=== PATIENT | female | born 1955 | race Caucasian/White ===

== ENCOUNTER 2020-12-13 03:21 | Day surgery (SDC) | payer MEDICARE, SELFPAY ==
[2020-12-08 13:28] VITALS: BMI 31.6
[2020-12-13 10:10] VITALS: BP 110/75; PULSE 82; RESP 18; TEMP 36.6; O2SAT 97; BMI 30.7
[2020-12-13] MEDS: LACTATED RINGERS 1,000 ML 150 ML IV CONT (10:20)
--- NOTE | 2020-12-13 10:30 | WPDANESEPPF ---
Anes - Initial Pre Proc Eval Procedure: Operation Date: 12/13/20 11:15 Proposed Procedures p Esophagogastroduodenoscopy - Armand Crum MD Date/Time: 12/13/20 10:30 Surgeon: Armand Crum MD Pre Op Diagnosis: gastritis Patient Data Age: 65 Gender: F Height: 1.55 m Weight: 73.6 kg Last Vital Signs Temp 36.6 C 12/13/20 10:10 Pulse 82 12/13/20 10:10 Resp 18 12/13/20 10:10 BP 110/75 12/13/20 10:10 Pulse Ox 97 12/13/20 10:10 Allergies Allergy/AdvReac Type Severity Reaction Status Date / Time codeine Allergy Unknown BLURRED Verified 12/13/20 10:08 VISION, NAUSEA AND VOMTING, HIVES Home Medications Medication Instructions Recorded Confirmed Type cholecalciferol (vitamin D3) 125 mcg PO DAILY 12/08/20 12/08/20 History [Vitamin D3] esomeprazole magnesium 40 mg PO DAILY 12/08/20 12/08/20 History estradiol [Vivelle-Dot] 1 patch TRANSDERMAL 2XW 12/08/20 12/08/20 History frovatriptan 2.5 mg PO DAILY PRN 12/08/20 12/08/20 History levothyroxine [Synthroid] 100 mcg PO DAILY 12/08/20 12/08/20 History mecobalamin (vitamin B12) 1,000 mcg PO DAILY 12/08/20 12/08/20 History Patient hx anesthesia problems: none Family hx anesthesia problems: none PMFSH Past Medical History Medical History (Updated 12/13/20 @ 10:34 by Igor Webster MD) Hx of migraines Hyperlipidemia Obesity Positional vertigo Surgical History Surgical History (Updated 12/13/20 @ 10:34 by Igor Webster MD) H/O colonoscopy History of esophagogastroduodenoscopy (EGD) Social History Social History Smoking status: Never smoker Living arrangements: with family Spiritual care concerns: No Anes - Eval Final PreProcedure Day of Procedure 12/13/20 10:30 Patient weight: obese Heart: regular rate and rhythm Lungs: clear to auscultation Airway: Mallampati scale class II Neurological: alert and oriented Last oral intake: >/= 8 hours ASA classification: III Emergent: no Anesthetic plan: proceed Anesthesia type and monitoring: general and standard monitoring Informed Consent: The patient's anesthetic plan and its attendant risks and benefits were discussed with the patient/family/POA. Questions were solicited and answers provided to the satisfaction of the patient/family/POA.
--- NOTE | 2020-12-13 10:57 | PM.HPGS ---
History of Present Illness History of Present Illness Consent: Risks, benefits, and alternatives have been discussed and questions answered. Patient agrees to proceed with procedure. Chief complaint: gastritis Narrative: Britany Medina is a 65 year old female with ruq pain, had egd and lap anurag 2 years ago. Still with pain and CT scan showed thickening antrum (reviewed records), she is on nexium otc Review of Systems Constitutional: Constitutional: Denies headache(s) and Denies weakness Eyes: Eyes: Denies blurry vision ENT: Reports Normal hearing present, Denies headache(s) and Denies neck pain Cardiovascular: Cardiovascular: Denies chest pain and Denies dyspnea Respiratory: Respiratory: Denies dyspnea Gastrointestinal: Gastrointestinal: Reports no additional gastrointestinal complaints Genitourinary: Genitourinary: Denies dysuria Musculoskeletal: Musculoskeletal: Denies neck pain Integumentary/Breasts: Skin/Breast: Denies dry skin Neurologic: Reports Normal hearing present, Denies headache(s) and Denies weakness Psychiatric: Psychiatric: Denies anxiety Endocrine: Endocrine: Denies change in body appearance Hematologic/Lymphatic: Hematologic/Lymphatic: Denies easy bleeding Allergic/Immunologic: Allergic/Immunologic: Denies urticaria PMFSH Past Medical History Medical History (Updated 12/13/20 @ 10:58 by Armand Crum MD) Abnormal CT scan, stomach Hx of migraines Hyperlipidemia Obesity Positional vertigo RUQ pain Surgical History Surgical History (Updated 12/13/20 @ 10:34 by Igor Webster MD) H/O colonoscopy History of esophagogastroduodenoscopy (EGD) Social History Social History Smoking status: Never smoker Living arrangements: with family Spiritual care concerns: No Meds Home Medications and Allergies Home Medications Medication Instructions Recorded Confirmed Type cholecalciferol (vitamin D3) 125 mcg PO DAILY 12/08/20 12/08/20 History [Vitamin D3] esomeprazole magnesium 40 mg PO DAILY 12/08/20 12/08/20 History estradiol [Vivelle-Dot] 1 patch TRANSDERMAL 2XW 12/08/20 12/08/20 History frovatriptan 2.5 mg PO DAILY PRN 12/08/20 12/08/20 History levothyroxine [Synthroid] 100 mcg PO DAILY 12/08/20 12/08/20 History mecobalamin (vitamin B12) 1,000 mcg PO DAILY 12/08/20 12/08/20 History Allergies Allergy/AdvReac Type Severity Reaction Status Date / Time codeine Allergy Unknown BLURRED Verified 12/13/20 10:08 VISION, NAUSEA AND VOMTING, HIVES Vital Signs Vital Signs - 24 hr 12/13/20 10:10 Temperature 97.9 F Pulse Rate 82 Respiratory Rate 18 Blood Pressure 110/75 Pulse Oximetry 97 Exam Const: General: comfortable and no acute distress HENMT: General nose exam: Normal nares present Eyes: General: appearance normal, both eyes and all related structures Neck: Neck: no JVD Resp: Auscultation: clear to auscultation bilaterally Cardio: Rate: regular rate Rhythm: regular rhythm GI: Inspection: non-distended GI Palp: Yes Soft to palpation Skin: General skin exam: normal color Neuro: General: gait normal Speech: normal speech Extrem: General: normal to inspection Psych: Mental Status: mental status grossly normal Assessment and Plan Assessment and plan (1) RUQ pain: Code(s): R10.11 - Right upper quadrant pain Status: Acute Assessment and Plan: egd with bx (2) Abnormal CT scan, stomach: Code(s): R93.3 - Abnormal findings on diagnostic imaging of other parts of digestive tract Status: Acute
[2020-12-13 11:17] VITALS: BP 109/65; PULSE 82; RESP 18; O2SAT 100
[2020-12-13 11:27] VITALS: BP 111/74; PULSE 78; RESP 18; O2SAT 100
[2020-12-13 11:37] VITALS: BP 110/72; PULSE 79; RESP 19; O2SAT 100
== END 2020-12-13 11:49 | disposition home or self-care (01) ==
PROVIDERS: PCP Internal Medicine; Visit Provider Internal Medicine Gastroenterology
PROC: 0DJ08ZZ Inspection of Upper Intestinal Tract, Via Natural or Artificial Opening Endoscopic (ICD-10-PCS; CPT 43235; principal; 2020-12-13 11:15)
DX: R10.11 Right upper quadrant pain (principal); R93.3 Abnormal findings on diagnostic imaging of other parts of digestive tract; E78.5 Hyperlipidemia, unspecified; E66.9 Obesity, unspecified; H81.10 Benign paroxysmal vertigo, unspecified ear
CPT/HCPCS: 43239; 88305; J2001; J2704; J7120

== ENCOUNTER 2024-09-12 00:45 | Day surgery (SDC) | payer MEDICARE, SELFPAY ==
[2024-09-03 14:08] VITALS: BMI 34.7
--- OUTSIDE RECORDS SUMMARY | 2024-09-12 00:47 | XMS_ITS ---
"shoul d not be used as the sole basis for treat ment or other patie nt manag ement decis ions. Test resul ts shoul d be corre lated with the clini lashaun histo ry, epide miedd gical data, and other data avail able to the clini prince evalu ating the patie nt. Yoli luciano the Fact Sheet s for healt h care provi ders and patie nts at the [facility] scotty: https ://ww w.fda .gov/ media /1363 12/do wnloa d https ://ww w.fda .gov/ media /1363 13/do wnloa d Metho dolog y: Real- Time RT-PC R Not Available [facility] (Lab) [address] [place], [address], 01/01/2024 19:09:32 01/01/20 24 01/01/2024 COVID -19, INFLU KARISHMA A+B, PCR influenza A RNA, RT-PCR NEGATI VE Not Available [facility] (Lab) [address] [place], [address], 01/01/2024 19:09:32 01/01/20 24 01/01/2024 COVID -19, INFLU KARISHMA A+B, PCR influenza B RNA, RT-PCR NEGATI VE Not Available [facility] (Lab) [address] [place], [address], 01/01/2024 19:09:32 01/01/20 24 01/01/2024 RAPID STREP A DNA strep A DNA, JUAREZ NEGATI VE negati ve Not Available [facility] (Lab) [address] [place], [address], 01/01/2024 19:12:18 01/31/20 24 01/31/2024 CBC/C OMPLE TE BLD COUNT W/DIF F white blood cells 6.8 x10'3 /uL 4.2-10 .8 Not Available [facility] (Lab) [address] [place], [address], 01/31/2024 14:46:31 01/31/2001/31/2024 CBC/C OMPLE TE BLD COUNT W/DIF F red blood cells 4.57 x10'6 /uL 3.80-5 .20 Not Available [facility] (Lab) [address] [place], [address], 01/31/2024 14:46:31 01/31/2001/31/2024 CBC/C OMPLE TE BLD COUNT W/DIF F hemoglobin 13.6 g/dL 12.0-1 5.6 Not Available [facility] (Lab) [address] [place], [address], 01/31/2024 14:46:31 01/31/2001/31/2024 CBC/C OMPLE TE BLD COUNT W/DIF F hematocrit 40.2 % 35.7-4 5.7 Not Available [facility] (Lab) [address] [place], [address], 01/31/2024 14:46:31 01/31/2001/31/2024 CBC/C OMPLE TE BLD COUNT W/DIF F mean red cell volume 88.0 fL 82.0-9 9.0 Not Available [facility] (Lab) [address] [place], [address], 01/31/2024 14:46:31 01/31/2001/31/2024 CBC/C OMPLE TE BLD COUNT W/DIF F mean red cell hemoglobin 29.8 pg 27.0-3 3.0 Not Available [facility] (Lab) [address] [place], [address], 01/31/2024 14:46:31 01/31/20 24 01/31/2024 CBC/C OMPLE TE BLD COUNT W/DIF F mean RBC HGB concentratio n 33.8 g/dL 31.0-3 6.0 Not Available [facility] (Lab) [address] [place], [address], 01/31/2024 14:46:31 01/31/2001/31/2024 CBC/C OMPLE TE BLD COUNT W/DIF F red cell distribution width 12.7 % 11.8-1 5.5 Not Available [facility] (Lab) [address] [place], [address], 01/31/2024 14:46:31 01/31/2001/31/2024 CBC/C OMPLE TE BLD COUNT W/DIF F platelets 233 x10'3 /uL 150-40 0 Not Available [facility] (Lab) [address] [place], [address], 01/31/2024 14:46:31 01/31/2001/31/2024 CBC/C OMPLE TE BLD COUNT W/DIF F mean platelet volume 9.4 fL 9.0-12 .4 Not Available [facility] (Lab) [address] [place], [address], 01/31/2024 14:46:31 01/31/20 24 01/31/2024 CBC/C OMPLE TE BLD COUNT W/DIF F neutrophils 61.6 % 39.0-7 2.0 Not Available [facility] (Lab) [address] [place], [address], 01/31/2024 14:46:31 01/31/2001/31/2024 CBC/C OMPLE TE BLD COUNT W/DIF F lymphocytes 26.1 % 16.0-4 7.0 Not Available [facility] (Lab) [address] [place], [address], 01/31/2024 14:46:31 01/31/20 24 01/31/2024 CBC/C OMPLE TE BLD COUNT W/DIF F monocytes 10.2 % 5.0-12 .0 Not Available [facility] (Lab) [address] [place], [address], 01/31/2024 14:46:31 01/31/2001/31/2024 CBC/C OMPLE TE BLD COUNT W/DIF F eosinophils 1.2 % 1.0-7. 0 Not Available [facility] (Lab) [address] [place], [address], 01/31/2024 14:46:31 01/31/2001/31/2024 CBC/C OMPLE TE BLD COUNT W/DIF F basophils 0.6 % 0.0-2. 0 Not Available [facility] (Lab) [address] [facility] [place], [address], 01/31/2024 14:46:31 01/31/2001/31/2024 CBC/C OMPLE TE BLD COUNT W/DIF F immature granulocytes 0.3 % 0.00-0 .50 Not Available [facility] (Lab) [address] [place], [address], 01/31/2024 14:46:31 01/31/2001/31/2024 CBC/C OMPLE TE BLD COUNT W/DIF F neutrophils, absolute count 4.17 x10'3 /uL 1.5-8. 0 Not Available [facility] (Lab) [address] [place], [address], 01/31/2024 14:46:31 01/31/2001/31/2024 CBC/C OMPLE TE BLD COUNT W/DIF F lymphocytes, absolute count 1.77 x10'3 /uL 1.07-3 .43 Not Available [facility] (Lab) [address] [place], [address], 01/31/2024 14:46:31 01/31/20 24 01/31/2024 CBC/C OMPLE TE BLD COUNT W/DIF F monocytes, absolute count 0.69 x10'3 /uL 0.29-0 .99 Not Available [facility] (Lab) [address] [place], [address], 01/31/2024 14:46:31 01/31/2001/31/2024 CBC/C OMPLE TE BLD COUNT W/DIF F eosinophils, absolute count 0.08 x10'3 /uL 0.02-0 .53 Not Available [facility] (Lab) [address] [place], [address], 01/31/2024 14:46:31 01/31/2001/31/2024 CBC/C OMPLE TE BLD COUNT W/DIF F basophils, absolute count 0.04 x10'3 /uL 0.01-0 .08 Not Available [facility] (Lab) [address] [place], [address], 01/31/2024 14:46:31 01/31/2001/31/2024 CBC/C OMPLE TE BLD COUNT W/DIF F immature granulocytes ,absolute 0.02 x10'3 /uL 0.00-0 .05 Not Available [facility] (Lab) [address] [place], [address], 01/31/2024 14:46:31 01/31/2001/31/2024 CBC/C OMPLE TE BLD COUNT W/DIF F nucleated red blood cells 0.0 % -0 Not Available [facility] (Lab) [address] [place], [address], 01/31/2024 14:46:31 01/31/2001/31/2024 CBC/C OMPLE TE BLD COUNT W/DIF F NRBC# 0.00 x10'3 /uL Not Available [facility] (Lab) [address] [place], [address], 01/31/2024 14:46:31 01/31/2001/31/2024 LIPID PANEL cholesterol 177 mg/dL 140-19 9 NIH EDDIE NSUS RECOM MENDA TION FOR YAZMIN STERO L: ADULT CHILD LOW RISK: <200 <170 BORDE RLINE : <200- 239 ----- HIGH RISK: >240 >200 Not Available [facility] (Lab) [address] [place], [address], 01/31/2024 14:59:03 01/31/2001/31/2024 LIPID PANEL triglyceride s 162 mg/dL 0-150 high NIH EDDIE NSUS REPOR T RECOM MENDA TION FOR TRIGL YCERI MARITO: ADULT CHILD LOW RISK: <150 ----- BODER LINE: 150-1 99 ----- HIGH RISK: >200 ----- Not Available [facility] (Lab) [address] [place], [address], 01/31/2024 14:59:03 01/31/2001/31/2024 LIPID PANEL HDL cholesterol 53 mg/dL 40- Not Available [facility] (Lab) [address] [place], [address], 01/31/2024 14:59:03 01/31/20 24 01/31/2024 LIPID PANEL LDL cholesterol, calculated 92 mg/dL 0-130 NIH EDDIE NSUS REPOR T RECOM MENDA TIONS FOR LDL: ADULT CHILD LOW RISK <130 <110 (OPTI MAL LDL) <100 ----- BORDE RLINE : 130-1 59 ----- HIGH RISK: >160 >130 A TRIGL YCERI DE RESUL T >400 INVAL IDATE S THE CALCU LATIO N FOR LDL FRACT IONAT ION - THE LDL RESUL T WILL NOT BE REPOR ESPERANZA. Not Available [facility] (Lab) [address] [place], [address], 01/31/2024 14:59:03 01/31/20 24 01/31/2024 COMPR EHENS PHOEBE METAB OLIC PANEL sodium 135 mmol/ L 137-14 5 low Not Available [facility] (Lab) [address] [place], [address], 01/31/2024 14:59:18 01/31/2001/31/2024 COMPR EHENS PHOEBE METAB OLIC PANEL potassium 3.9 mmol/ L 3.5-5. 1 Not Available [facility] (Lab) [address] [place], [address], 01/31/2024 14:59:18 01/31/2001/31/2024 COMPR EHENS PHOEBE METAB OLIC PANEL chloride 104 mmol/ L 98-107 Not Available [facility] (Lab) [address] [place], [address], 01/31/2024 14:59:18 01/31/2001/31/2024 COMPR EHENS PHOEBE METAB OLIC PANEL carbon dioxide 26 mmol/ L 22-30 Not Available [facility] (Lab) [address] [place], [address], 01/31/2024 14:59:18 01/31/2001/31/2024 COMPR EHENS PHOEBE METAB OLIC PANEL anion gap 8.9 mmol/ L 14-22 low Not Available [facility] (Lab) [address] [place], [address], 01/31/2024 14:59:18 01/31/2001/31/2024 COMPR EHENS PHOEBE METAB OLIC PANEL glucose 105 mg/dL 70-99 high Not Available [facility] (Lab) [address] [place], [address], 01/31/2024 14:59:18 01/31/2001/31/2024 COMPR EHENS PHOEBE METAB OLIC PANEL BUN 15 mg/dL 8-19 Not Available [facility] (Lab) [address] [place], [address], 01/31/2024 14:59:18 01/31/2001/31/2024 COMPR EHENS PHOEBE METAB OLIC PANEL creatinine 0.72 mg/dL 0.66-1 .25 Not Available [facility] (Lab) [address] [place], [address], 01/31/2024 14:59:18 01/31/20 24 01/31/2024 COMPR EHENS PHOEBE METAB OLIC PANEL GFR >60 Refer ence Range : [place] ge GFR Healt hy Adult : >60 mL/mi n/1.7 3 m2 Chron ic Kidne y Disea se: 15-60 mL/mi n/1.7 3 m2 Kidne y Failu re: <15/m L/min /1.73 m2 www.n iddk. nih.g ov The MDRD study equat ion has not been valid ated in child arin <18 years of age; pregn ant women ; the elder ly >85 years of age; or in some racia l or ethni c subgr oups, such as [facility] nics. Outsi de the valid ated nathan eters , estim ated GFR is less accur ate, requi ring clini lashaun judgm ent on a case- by-ca se basis . Clini lashaun inter preta tion for other races and ages must be made by the clini prince. The MDRD study equat ion has not been valid ated for the evalu ation of serum creat inine relat ed to nutri je l statu s or medic ation usage . For perso ns <18 years of age, a pedia tric GFR calcu lator is avail able on the [facility] websi te: https ://stephy w.kid ruba.o rg/pr ofess ional s/kdo qi/gf r_cal culat or Not Available [facility] (Lab) [address] [place], [address], 01/31/2024 14:59:18 01/31/20 24 01/31/2024 COMPR EHENS PHOEBE METAB OLIC PANEL alkaline phosphatase 68 U/L 38-126 Not Available [facility] (Lab) [address] [place], [address], 01/31/2024 14:59:18 01/31/20 24 01/31/2024 COMPR EHENS PHOEBE METAB OLIC PANEL alanine aminotransfe rase 33 U/L 0-35 Not Available [facility] (Lab) [address] [place], [address], 01/31/2024 14:59:18 01/31/20 24 01/31/2024 COMPR EHENS PHOEBE METAB OLIC PANEL aspartate aminotransfe rase 26 U/L 15-37 Not Available [facility] (Lab) [address] [place], [address], 01/31/2024 14:59:18 01/31/2001/31/2024 COMPR EHENS PHOEBE METAB OLIC PANEL bilirubin, total 0.50 mg/dL 0.20-1 .30 Not Available [facility] (Lab) [address] [place], [address], 01/31/2024 14:59:18 01/31/2001/31/2024 COMPR EHENS PHOEBE METAB OLIC PANEL calcium 9.8 mg/dL 8.4-10 .2 Not Available [facility] (Lab) [address] [place], [address], 01/31/2024 14:59:18 01/31/2001/31/2024 COMPR EHENS PHOEBE METAB OLIC PANEL total protein 6.0 g/dL 6.3-8. 2 low Not Available [facility] (Lab) [address] [place], [address], 01/31/2024 14:59:18 01/31/2001/31/2024 COMPR EHENS PHEOBE METAB OLIC PANEL albumin 4.0 g/dL 3.0-4. 4 Not Available [facility] (Lab) [address] [place], [address], 01/31/2024 14:59:18 01/31/20 24 01/31/2024 COMPR EHENS PHOEBE METAB OLIC PANEL globulin 2.0 g/dL 2.6-4. 2 low Not Available [facility] (Lab) [address] [place], [address], 01/31/2024 14:59:18 01/31/20 24 01/31/2024 COMPR EHENS PHOEBE METAB OLIC PANEL A/G ratio 2.0 ratio 1.0-2. 0 Not Available [facility] (Lab) [address] [place], [address], 01/31/2024 14:59:18 01/31/2001/31/2024 T4 FREE free T4 0.82 NG/dL 0.78-2 .19 Not Available [facility] (Lab) [address] [place], [address], 01/31/2024 15:04:18 01/31/20 24 01/31/2024 MICRO ALBUM IN RANDO M URINE microalbumin , urine 6.8 mg/L 0.0-16 .6 Not Available [facility] (Lab) [address] [place], [address], 01/31/2024 15:06:13 01/31/20 24 01/31/2024 VITAM IN D 25-HY DROXY vd25oh 59.5 NG/mL 30-100 Vitam in D Statu s: Defic ient: <20 ng/mL Insuf ficie nt: 20-29 ng/mL Suffi cient : 30-10 0 ng/mL Not Available [facility] (Lab) [address] [place], [address], 01/31/2024 15:07:10 01/31/20 24 01/31/2024 TSH thyroid-stim ulating hormone 2.560 uIU/m L 0.465- 4.680 Not Available [facility] (Lab) [address] [place], [address], 01/31/2024 15:08:06 01/31/20 24 01/31/2024 VITAM IN B12 (SKYLER RANJIT ) vb12 722 pg/mL 239-93 1 Not Available [facility] (Lab) [address] [place], [address], 01/31/2024 15:45:44 01/31/20 24 01/31/2024 FOLAT E, SERUM /PLAS MA folate 2.91 NG/mL 2.76-2 0.0 Not Available [facility] (Lab) [address] [place], [address], 01/31/2024 15:45:46 01/31/20 24 01/31/2024 HEMOG LOBIN A1C HA1C 5.5 % 4.0-6. 0 Diabe scotty Scree dayna Crite sundar: <5.7% Consi stent with absen ce of diabe scotty 5.7-6 .4% Consi stent with incre ased risk for diabe scotty (pred iabet es) >OR=6 .5% Consi stent with diabe scotty REFER ENCE: Diabe scotty Care 2016, 39(Cueva ppl.1 ):s13 -s22 Not Available [facility] (Lab) [address] [place], [address], 01/31/2024 16:57:46 06/15/19 24 06/14/2023 CT, chest , w/o contr ast [facility] [address] [place], [place] [address] [phone] Patien t Name: MARYJANEJACOBOBryan SRAVAN MARLEY Access ion #: [id number] Sex: F : 1954 8 Dictat ed By: Keith Agustin ms Attend ing Physic diaz: WILLIAM CRUZ Orderi Physic diaz: WILLIAM CRUZ Exam Date: 2023 14:56 PM Exam Name: CT CHEST WO Admitt ing Diagno sis(es ): Proced ure: CT CHEST WO Reason for study/ Clinic al Histor y: Shortn ess of breath on exerti on. Compar warner Study: None availa ble at time of dictat ion. Exam Date: 2:56 PM TECHNI QUE: Multid etecto r CT of the chest was perfor med from the lung apices to the upper abdome n withou t the use of intrav enous contra ct. Axial, amador l and sagitt al multip lanar reform ats were perfor med. RADIAT ION DOSE: CTDI volume is 10.1 mGy. Dose-l ength produc t is 375.6 mGy*cm The dose indica tors for CT are the volume Comput ed Tomogr aphy (CT) Dose Index (CTDIv ol) and the Dose Length Produc t (DLP), and are measur ed in units of mGy and mGy-cm , respec tively . These indica tors are not patien t dose, but values genera esperanza from the CT scanne r acquis ition factor s. The report includ es radiat ion exposu re data for exposu res receiv ed during this examin ation. FINDIN GS: Lower neck: Normal thyroi d. Lungs: There is a 3 mm round glass nodule in the latera l right upper lobe (serie s 205, image 24). Heart/ Vascul ar Struct ures: Normal heart size. No perica rdial effusi on. Normal calibe r thorac ic aorta. Scatte red athero sclero tic calcif icatio ns of the thorac ic aorta. Normal calibe r main pulmon celso artery . Page 1 [facility] [address] [address] Patien t Name: SRAVAN MOULTON Access ion #: [id number] Sex: F : 1954 8 Dictat ed By: Keith Agustin ms Attend ing Physic diaz: FERN SINGH [facility] Physic diaz: WILLIAM CRUZ Exam Date: 2023 14:56 PM Exam Name: CT CHEST WO Admitt ing Diagno sis(es ): Lymph Nodes: No adenop athy Pleura : No pleura l effusi on or signif icant pneumo thorax . Esopha mundo: Unrema rkable . Muscul oskele marlen: No acute osseou s abnorm ality. Soft tissue s: Normal . Upper abdome n: Limite d portio ns of the upper abdome n are unrema rkable . IMPRES FER: No acute intrat horaci c abnorm ality. 3 mm right upper lobe pulmon celso nodule . Follow -up accord ing to Fleisc hner recomm endati ons recomm ended. Radiat ion optimi zation : All CT scans at this facili ty use at least one of these dose optimi zation techni ques: automa esperanza exposu re contro l mA and/or kV adjust ment per patien t size (inclu marito target ed exams where dose is matche d to clinic al indica tion) or iterat phoebe recons tructi on. Electr onical ly Signed by: Keith Agustin ms at 2023 11:24: 15 AM Page 2 [email or web address] [facility] (Imaging) [address] [place], [address], 08/20/2024 17:22:50 11/09/19 24 11/09/2023 CT[facility], w/o contr ast [facility] [address] [place] [address] Patien t Name: SRAVAN MOULTON Access ion #: [id number] Sex: F : 1954 6 Dictat ed By: Yoan Bravo Attend ing Physic diaz: WILLIAM CRUZ Orderi Physic diaz: WILLIAM CRUZ Exam Date: 2023 12:21 PM Exam Name: CT MAXILL OFACIA L WO Admitt ing Diagno sis(es ): HISTOR Y: CHRONI C SINUSI TIS TECHNI QUE: Nonenh anced axial images throug h the facial bones with amador l and sagitt al MPR. Radiat ion Dose Inform ation: CT Dose: CTDI volume is 25 mGy. Dose-l ength produc t is 250 mGy*cm FINDIN GS: Mandib le: normal Maxill a: Normal Pteryg oid plates : Normal Zygoma tic proces ses: Unrema rkable . Zygoma tic arches : Unrema rkable Orbits : Unrema rkable Sinuse s: Well-a erated . Well-a erated mastoi d air cells. Facial swelli ng: None IMPRES FER: Well aerate d sinuse s. Radiat ion optimi zation : All CT scans at this facili ty use at least one of these dose optimi zation techni ques: automa esperanza exposu re contro l mA and/or kV adjust ment per patien t size (inclu marito target ed exams where dose is matche d to Page 1 [facility] [address] [place] [address] Patien t Name: SRAVAN MOULTON Access ion #: [id number] Sex: F : 1954 6 Dictat ed By: Yoan Bravo Attend ing Physic diaz: FERN SINGH Ordermeghan ng Physic diaz: WILLIAM CRUZ Exam Date: 2023 12:21 PM Exam Name: CT MAXILL OFACIA L WO Admitt ing Diagno sis(es ): clinic al indica tion) or iterat phoebe recons tructi on. Electr onical ly Signed by: Yoan Bravo at 2023 15:14: 22 PM Page 2 [facility] (Imaging) [address] [place], [address], 11/30/2023 14:49:58 01/28/20 24 01/28/2024 DEXA, axial skele ton No observ ation record ed. [facility] [address] [place], [address], 01/28/2024 16:35:52 01/28/20 24 01/28/2024 DEXA, axial skele ton [facility] [address] [place] [address] Patien t Name: SRAVAN MOULTON Access ion #: [id number] Sex: F : 1954 9 Dictat ed By: Lolita Flores Attend ing Physic diaz: WILLIAM CRUZ Orderi Physic diaz: WILLIAM CRUZ Exam Date: 2023 14:25 PM Exam Name: XR DEXA-H IPS PELVIS SPINE Admitt ing Diagno sis(es ): INDICA TION: 69 years old, Female ; screen ing for osteop orosis . Postmsteve gutierrez. DEXA SCAN: BONE DENSIT Y REPORT : AP SPINE (L1-L4 ) : T Score: -0.6 RT HIP TOTAL : T Score: -0.6 10 YEAR FRACTU RE RISK* Not provid ed. IMPRES FER: 1. Normal bone minera l densit y of the lumbar spine. 2. Normal bone minera l densit y of the right hip. ------ ------ ------ ------ ------ ------ ------ ------ ----- *FRAX versio n 3.08. Fractu re probab ility calcul ated for an untrea esperanza patien t. Fractu re probab ility may be lower if the patien t has receiv ed treatm ent. T-scor e: compar warner by yadiel cobb (JACOBO) to a young adult popula tion, aroldo mera for sex and ethnic ity (used for postme del al women and men >50 years) and classi fied by WHO criter ia. -1.0: normal <-1.0 to >-2.5: osteop enia Page 1 [facility] [address] [facility] [place] [address] Patien t Name: SRAVAN MOULTON Access ion #: [id number] Sex: F : 1954 9 Dictat ed By: Lolita Flores Attend ing Physic diaz: FERN SINGH Ordermeghan ng Physic diaz: WILLIAM CRUZ A Exam Date: 2023 14:25 PM Exam Name: XR DEXA-H IPS PELVIS SPINE Admitt ing Diagno sis(es ): -2.5: osteop orosis -2.5 plus fragil ity fractu re: severe osteop orosis Z-scor e: compar ed by SD to an age, sex, and ethnic ity popula tion (used for premen opausa l women, men <50 years, and childr en instea d of T-scor e WHO criter ia 4) <-2.0: below expect ed range/ low bone densit y for age, and a cause should be sought Electr onical ly Signed by: Lolita Flores at 2023 15:26: 58 PM Page 2 [email or web address] [facility] (Imaging) [address] [place], [place], [facility], 07/31/2024 15:17:16 01/28/20 24 01/28/2024 scree dayna breas t giles, bilat [facility] [address] 8-[address] Patien t Name: SRAVAN MOULTON Access ion #: [id number] Sex: F : 1954 9 Dictat ed By: Lolita Flores Attend ing Physic diaz: WILLIAM CRUZ ng Physic diaz: ENRIKE CRUZTSOPHIE A Exam Date: 2023 14:28 PM Exam Name: MG SCRN BREAST GILES BILAT Admitt ing Diagno sis(es ): PROCED URE: SCREEN ING MAMMOG NAVDEEP WITH TOMOSY NTHESI S REASON FOR EXAM: screen ing mammog navdeep COMPAR WARNER: MG SCRN BREAST GILES BILAT on DOS: 3, MG SCRN BREAST GILES BILAT 3D on DOS: 09/29/21 , MG SCRN BREAST GILES BILAT 3D on DOS: 1, SCREEN ING BREAST GILES, BILAT 3D on DOS: 0, SCREEN ING BREAST GILES, BILAT on DOS: 9 TECHNI QUE: Bilate ral CC and MLO views obtain ed. Images were obtain ed using a Digita l Tomosy nthesi s Unit. Standa rd 2D and 3D Tomosy nthesi s images were review ed. FINDIN GS: BREAST COMPOS ITION: C - The breast s are hetero geneou sly dense, which may obscur e small masses . In the right breast , no asymme trical parenc hymal patter n, yessy ectura l distor tion, pleomo rphic microc alcifi cation s or masses . In the left breast , no suspic ious masses or calcif icatio ns. Stable yessy ectura l distor tion in the left breast which may be relate d to prior surgic al biopsy . IMPRES FER: No findin gs of malign johnny. RECOMM ENDATI ON: Recomm end annual mammog navdeep. ASSESS MENT: Page 1 [facility] [address] [place] [address] Patien t Name: SRAVAN MOULTON Access ion #: [id number] Sex: F : 1954 9 Dictat ed By: Lolita Flores Attend ing Physic diaz: FERN SINGH [facility] Physic diaz: WILLIAM CRUZ Exam Date: 2023 14:28 PM Exam Name: MG SCRN BREAST GILES BILAT Admitt ing Diagno sis(es ): BIRADS : 2 - Benign Electr onical ly Signed by: Lolita Flores at 2023 15:29: 08 PM Page 2 [email or web address] [facility] (Imaging) [address] [place], [address], 07/31/2024 15:17:50 Result Notes None recorded. Problems Name Problem SNOMED Code Status Onset Date Resolution Date Notes Provider Name and Address Organization Details Recorded Time Pain of left shoulder joint 6150401487691 9109 Active 2022 Not Available [facility] 3 22:15:22 Hypothyroi dism 33938390 Active 2022 Not Available [facility] 3 22:15:22 Impaired fasting glycemia 611536330 Active 2022 Not Available [facility] 3 22:15:22 Hyperlipid emia 53011599 Active 2022 Not Available [facility] 3 22:15:22 Seasonal allergic rhinitis 245283898 Active 2022 Not Available [facility] 3 22:15:22 Abdominal pain 19679784 Active 2022 Not Available [facility] 3 22:15:22 Vertigo 797496005 Active 2022 Not Available [facility] 3 22:15:22 Hyperglyce caridad 54813331 Active 2022 Not Available [facility] 3 22:15:22 Osteoarthr itis 725655828 Active 2022 Not Available [facility] 3 22:15:22 Snoring 83792767 Active 2022 Not Available [facility] 3 22:15:22 Serum vitamin B12 below reference range 919274418 Active 2022 Not Available [facility] 3 22:15:22 Vitamin D deficiency 60678711 Active 2022 Not Available [facility] 3 22:15:22 Renewal of prescripti on Active 2021 Not Available [facility] 3 22:15:22 Cervical lymphadeno mark 017173282 Active Not Available [facility] 3 22:15:22 Acute sinusitis 01012464 Active 2021 Not Available [facility] 3 22:15:22 Gastroesop hageal reflux disease without esophagiti s 233209801 Active 2021 Not Available [facility] 3 22:15:22 Eruption 668845917 Active Not Available [facility] 3 22:15:22 Vaginal discharge 270598933 Active Not Available [facility] 3 22:15:22 Menopause present 155552628 Active Not Available [facility] 3 22:15:22 Chest pain 55144176 Active Not Available [facility] 3 22:15:22 Hyperthyro idism 82155421 Active 2021 Not Available [facility] 3 22:15:22 Sinusitis 52197543 Active Not Available [facility] 3 22:15:22 Migraine 08980571 Active Not Available [facility] 3 22:15:22 Pain of hip region 33726130 Active Not Available [facility] 3 22:15:22 Cough 18287088 Active 2021 Not Available [facility] 3 22:15:22 Upper respirator y infection 93821191 Active 2021 Not Available [facility] 3 22:15:22 COVID-19 943458850 Active 2021 Not Available [facility] 3 22:15:22 Herpes simplex 68470000 Active Not Available [facility] 3 22:15:22 Acute urinary tract infection 687278030 Active 2023 KAILEY Dean, [place] - [facility] 4 16:08:15 Candidiasi s of vagina 21462787 Active 2023 KAILEY Dean, [place] - [facility] 4 16:08:58 Dyspnea on exertion 74872616 Active 2023 Abelino francis MD [address] [place] [address], [address] , [facility] 4 15:25:48 Internal hemorrhoid s 85053622 Active 2023 JERRICA Ansari null, [facility] 4 18:18:45 Nausea 839887312 Active 2023 Meagan Parham MA null, [facility] 4 12:27:22 Allergic rhinitis 83836375 Active 2023 Abelino francis MD [address], [place], [address] , [facility] 4 15:56:44 Pain in right foot 7691133300067 07 Active 2024 Abelino francis MD [address], [place], [address] , [facility] 5 15:32:47 Skin lesion 02803365 Active 2024 Abelino francis MD [address], [place], [address] , [facility] 5 15:41:22 Notes:Medical History: Anxie ty Migraine headaches Rhinosinusitis COVID infection Obesity with mild complex SAHS, AHI = 4.6, 03/14/22 Hypothyroidism Hyperlipidemia STEVEN Urge urinary incontinence Vit D deficiency HSV infection Problem Notes None recorded. Procedures Surgical History Date Name Laterality Status Provider Name and Address Organization Details Recorded Time 02/07/20 24 Medicare Wellness CPT Code, subsequent completed Rex Prakash LPN [facility] 02/07/2024 08:06:13 01/26/20 23 Medicare Wellness CPT Code, subsequent completed Lyndsey Vieira RN [facility] 01/25/2023 14:50:40 11/22/19 22 Most Recent Bone Density completed Not Available [facility] 06/28/2022 03:08:05 09/08/19 20 Most Recent Mammogram completed Not Available [facility] 06/28/2022 03:08:05 01/04/20 19 Date of Last Colonoscopy completed Not Available [facility] 06/28/2022 03:08:05 07/26/19 19 laparoscopic cholecystectomy completed Not Available [facility] 06/28/2022 03:08:08 07/25/19 19 Cholecystectomy completed Not Available [facility] 06/28/2022 03:08:08 [employer]IM CONSULTANT Surgery completed Not Available [facility] 06/28/2022 03:08:08 Orthopedic Surgery completed Not Available [facility] 06/28/2022 03:08:08 Gallbladder Surgery completed Not Available [facility] 06/28/2022 03:08:08 Imaging Results Imaging Date Name Status LastModified by Organiz [facility] Details LastModified Time 06/14/2023 CT, chest, w/o contrast completed [email or web address] [facility] (Imaging) [address] [place], [address], 08/20/2024 17:22:50 11/09/2023 CT, maxillofacial, w/o contrast completed [email or web address] [facility] (Imaging) [address] [place], [address], 11/30/2023 14:49:58 01/28/2024 DEXA, axial skeleton active [id number]|2024-09-12 00:47:00|2024-09-12 00:46:00|XMS_ITS|BKG DAEMON|External Medical Summaries|[id number]|" Continuity of Care Document (C-CDA R2.1) (Encounter date: 10/26/2006 10:31 AM) Created on: September 12, 2024 Sravan Medina : 1955 Sex: Female Author Organization [facility] Address [address] [place] [address] Phone 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 [address] , [address], [place], [address], [place]. tel:[phone] Family History Family Member Type Diagnosis Age At Onset No Information Payers Payer name Insurance type Covered alliance party ID Authoriza tion(s) No Information Social History Type Description Quantity Date Captured Comments Sex Female Smoking Status No Information Chief Complaint And Reason For Visit No Information Reason For Referral Reason For Referral No Information History Of Present Illness Encounter Date Complaint History Of Prese nt Illness No Information Functional Status Date Functional Assessmen t No Information Instructions Date Instruction Additional Infor mation No Information Assessments Type Assessment Date No Information Patient Care Teams Name Effective Dates (start - stop) Status Members No Information "
[2024-09-12 07:27] VITALS: BP 140/98; PULSE 88; RESP 16; TEMP 36.6; O2SAT 98; BMI 34.8
[2024-09-12] MEDS: LACTATED RINGERS 1,000 ML 150 ML IV CONT (07:37)
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
[2024-09-12] MEDS: ONDANSETRON INJ 4 MG/2 ML VIAL IV PUSH (08:21)
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
[2024-09-12 08:55] VITALS: BP 143/89; PULSE 82; RESP 18; O2SAT 98
[2024-09-12 09:05] VITALS: BP 128/90; PULSE 82; RESP 20; O2SAT 99
[2024-09-12 09:15] VITALS: BP 158/88; PULSE 80; RESP 17; O2SAT 99
== END 2024-09-12 09:35 | disposition home or self-care (01) ==
PROVIDERS: PCP Internal Medicine; Referring Provider Internal Medicine; Visit Provider Internal Medicine Gastroenterology
PROC: 0DJD8ZZ Inspection of Lower Intestinal Tract, Via Natural or Artificial Opening Endoscopic (ICD-10-PCS; CPT 45378; principal; 2024-09-12 08:30)
DX: Z12.11 Encounter for screening for malignant neoplasm of colon (principal); K63.5 Polyp of colon; Z80.0 Family history of malignant neoplasm of digestive organs; E66.9 Obesity, unspecified; Z68.34 Body mass index [BMI] 34.0-34.9, adult
CPT/HCPCS: 45385; 88305; J2405; J2704; J7120